=== PATIENT | female | born 1990 | race African-American/Black ===

== ENCOUNTER 2019-06-24 13:11 | Inpatient (IN) | payer OTHER ==
[~2019-06-24] VITALS: Ht 160 cm; Wt 72.6 kg
[2019-06-24 13:13] VITALS: BP 137/74
[2019-06-24 13:27] LABS: URINE BLOOD 3+ (Negative); URINE CLARITY CLEAR; URINE COLOR YELLOW; URINE GLUCOSE-RANDOM* NEGATIVE (Negative); URINE KETONES 3+ (Negative); URINE LEUKOCYTES-REFLEX TRACE (Negative); URINE NITRITE-REFLEX NEGATIVE (Negative); URINE PROTEIN (DIPSTICK) TRACE (Negative)
[2019-06-24 13:31] LABS: ICTOTEST (BILI CONFIRMATORY) Negative (Negative); URINE BILIRUBIN NEGATIVE (Negative)
[2019-06-24 13:32] LABS: URINE REDUCING SUBSTANCE NEGATIVE
[2019-06-24 13:35] LABS: SQUAMOUS 4-10 Moderate /LPF (0-3)
[2019-06-24 13:36] LABS: CASTS None Seen /LPF (None Seen); CRYSTALS None Seen /LPF (None Seen); URINE RBC 3-10 Few /HPF (0-2); URINE WBC-REFLEX 0-5 Rare /HPF (0-5)
[2019-06-24 13:40] LABS: HEMATOCRIT 37.9 % (37.0-47.0); HEMOGLOBIN 12.1 gm/dL (12.0-15.0); MCH 26.3 pg (26.0-34.0); MCV 82.4 fL (80.0-100.0); PLATELET COUNT 289 thou/uL (150-400); RDW 15.9 % (10.5-14.5); WBC 11.7 thou/uL (4.0-11.0)
[2019-06-24 13:49] LABS: CALCIUM 9.4 mg/dL (8.5-10.1); CREATININE 0.9 mg/dL (0.6-1.0); POTASSIUM 3.8 mmol/L (3.5-5.1)
[2019-06-24 13:55] LABS: TOTAL BILIRUBIN 0.9 mg/dL (<0.1-1.0); TOTAL PROTEIN 8.8 g/dL (6.4-8.2)
[2019-06-24 14:08] LABS: ABSOLUTE NEUTROPHILS 8.4 thou/uL (1.4-8.2)
--- NOTE | 2019-06-24 14:37 | EKG ---
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: VENECIA : 1990 Requested By: Marlene Staples Order Number: [id number] MD: Fernie Day Measurements Intervals Williams Rate: 112 P: 66 MN: 148 QRS: 90 QRSD: 80 T: 39 QT: 321 QTc: 438 Interpretive Statements Sinus tachycardia Borderline right axis deviation Borderline T abnormalities, anterior leads No previous ECG available for comparison Electronically Signed On 06-24-2019 14:36:49 CDT by Fernie Day [email or web address] ��������������������������������������������� <ELECTRONICALLY SIGNED> ���������������������������������������� By: Fernie Day MD, [facility] ��������������������������������������������� 06/24/19 1436 1417 1417 Fernie Day MD, FACC /EPI
[2019-06-24 16:34] VITALS: BP 121/66
[2019-06-24] MEDS ORDERED: HYDROXYCHLOROQ200 M1 PO (16:40)
[2019-06-24] MEDS ORDERED: PREDNISONE 5 MG5 M1 PO (16:40)
[2019-06-24] MEDS ORDERED: LIORESAL 10 MG10 MG PO (16:40)
[2019-06-24] MEDS ORDERED: PROTONIX 20 MG20 M1 PO (16:41)
[2019-06-24] MEDS ORDERED: MYFORTIC360 MG PO (16:41)
[2019-06-24] MEDS ORDERED: OXYCODONE HCL 55 MG PO (16:42)
--- NOTE | 2019-06-24 17:06 | NUR ---
ATTEMPTED TO CALL REPORT AT 7344. NURSE REPORTS SHE IS UNAWARE SHE IS GETTING A PT AND WILL CALL BACK
[2019-06-24 17:32] VITALS: BP 108/64
[2019-06-24 17:59] VITALS: BP 128/76
--- NOTE | 2019-06-24 19:00 | NUR ---
PATIENT ARRIVED FROM ED, 1730, ALERT AND ORIENTED X4. DR RAMOS NOTIFIED. TEMPS 101.2 AND MEDICATED. WILL CONTINE WITH POC.
[2019-06-24 19:41] VITALS: BP 134/71
[2019-06-25 04:48] VITALS: BP 109/55
[2019-06-25 08:05] VITALS: BP 116/67
[2019-06-25 11:45] VITALS: BP 106/64
--- NOTE | 2019-06-25 12:51 | 2DMMODE ---
[facility] [address] [place] [address] 2 D/M-MODE ECHOCARDIOGRAM Name: CHRISTOPH GRIFFITHS Room #: 207-P ADM IN M.R.#: [id number] ������������� Admission: 06/24/19 ������������� Attend Phys: Jignesh Salcido Discharge: ��� ������������� ��� Date of : 89 Date of Service: 06/25/19 1251 �� Report #: [id number] �������� ��������������������������������������������[id number] THIS REPORT FOR: //name// APPROVED REPORT Study performed: 06/25/2019 10:47:03 EXAM: Comprehensive 2D, Doppler, and color-flow Echocardiogram Patient Location: Echo lab Room #: 207 Status: routine BSA: 1.76 HR: 85 bpm BP: 116/67 mmHg Rhythm: NSR Indications Chest Pain 2D Dimensions RVDd: 28.48 mm IVSd: 9.75 (7-11mm) LVOT Diam: 21.35 (18-24mm) LVDd: 51.67 mm PWd: 8.84 (7-11mm) Ascending Ao: 20.76 (22-36mm) LVDs: 34.93 (25-40mm) Aortic Root: 24.44 mm IVC: 14.00 mm Volumes Left Atrial Volume (Systole) Single Plane 4CH: 20.85 mL Single Plane 2CH: 19.31 mL LA ESV Index: 13.00 mL/m2 Aortic Valve AoV Peak Ghassan.: 1.40 m/s AO Peak Gr.: 7.87 mmHg AI Vmax: 4.72 m/s AI [place]: 3.75 m/s2 AI PHT: 365.21 ms Mitral Valve E/A Ratio: 2.2 MV Decel. Time: 174.94 ms MV E Max Ghassan.: 1.12 m/s MV A Ghassan.: 0.51 m/s MV PHT: 50.[address] [facility] [place] [address] 2 D/M-MODE ECHOCARDIOGRAM Name: CHRISTOPH GRIFFITHS Room #: 207-P ADM IN M.R.#: [id number] ������������� Admission: 06/24/19 ������������� Attend Phys: Jignesh Salcido Discharge: ��� ������������� ��� Date of : 89 Date of Service: 06/25/19 1251 �� Report #: [id number] �������� ��������������������������������������������[id number] IVRT: 96.89 ms Pulmonary Valve PV Peak Ghassan.: 0.71 m/s PV Peak Gr.: 1.99 mmHg Pulmonary Vein P Vein S: 0.41 m/s P Vein A: 0.28 m/s P Vein D: 0.55 m/s P Vein A Dur.: 114.2 msec P Vein S/D Ratio: 0.75 Tricuspid Valve TR Peak Ghassan.: 2.13 m/s RAP Estimate: 5.00 mmHg TR Peak Gr.: 18.12 mmHg PA Pressure: 23.00 mmHg Left Ventricle The left ventricle is normal size. There is normal left ventricular wall thickness. The left ventricular systolic function is normal. The left ventricular ejection fraction is within the normal range. LVEF is 60-65%. The left ventricular diastolic function is normal. Right Ventricle The right ventricle is normal size. The right ventricular systolic function is normal. Atria The left atrium size is normal. The right atrium size is normal. Aortic Valve The aortic valve is normal in structure. Mild to moderate aortic regurgitation. There is no aortic valvular stenosis. Mitral Valve The mitral valve is normal in structure. Mild mitral regurgitation. No evidence of mitral valve stenosis. Tricuspid Valve The tricuspid valve is normal in structure. Mild to moderate tricuspid regurgitation. PAP is estimated at 23 mmHg. Pulmonic Valve The pulmonary valve is normal in structure. Moderate pulmonic regurgitation. [place] [address] [address] 2 D/M-MODE ECHOCARDIOGRAM Name: KARIN CHRISTOPH ABDI Room #: 207-P [facility] IN [facility]#: [id number] ������������� Admission: 06/24/19 ������������� Attend Phys: Jignesh Salcido Discharge: ��� ������������� ��� Date of : [birth year] Date of Service: 06/25/19 1251 �� Report #: [id number] �������� ��������������������������������������������[id number] The aortic root is normal in size. IVC is normal in size and collapses >50% with inspiration. Pericardium There is no pericardial effusion. <Conclusion> The left ventricle is normal size. There is normal left ventricular wall thickness. The left ventricular systolic function is normal. The left ventricular diastolic function is normal. The right ventricle is normal size. The left atrium size is normal. Mild to moderate aortic regurgitation. Mild mitral regurgitation. Mild to moderate tricuspid regurgitation. PAP is estimated at 23 mmHg. ��������������������������������������������� <ELECTRONICALLY SIGNED> ���������������������������������������� By: Paul Yung MD ��������������������������������������������� 06/25/19 1251 1251 1251 Paul Yung MD /INF
[2019-06-25 16:10] VITALS: BP 144/70
--- NOTE | 2019-06-25 17:54 | NUR ---
ASSUMED CARE AT SHIFT CHANGE, ALERT AND ORIENTED X4. VSS AND AFEBRILE. NSR ON THE MONITOR. C/O PAIN MEDICATED NEEDED. PROGRSEEING TOWARD GOALS AND PATIENT STATED THAT SHE FEELS BETTER. AND WILL CONTINUE WITH POC.
[2019-06-25 21:20] VITALS: BP 117/71
--- NOTE | 2019-06-26 03:08 | NUR ---
ASSESSMENT DOCUMENTED.PT BEEN RESTING IN N ACUTE DISTRESS,MOM AT BEDSIDE.VSS.A/OX4.NO FEVER THIS SHIFT.PAIN MEDS GIVEN ORDERED FOR PAIN TO CHEST AND RUQ ABDOMEN WITH PARTIAL RELIEF.UP AD LIZ TO BR.PT C/O NAUSEA THAT WAS CONTROLLED WITH ZOFRAN.DENIES ANY OTHER CONCERNS AT THIS TIME.WILL CONT TO MONITOR PER POC.
[2019-06-26 04:00] VITALS: BP 97/62
[2019-06-26 07:40] VITALS: BP 120/67
[2019-06-26 11:35] VITALS: BP 119/71
--- NOTE | 2019-06-26 12:47 | NUR ---
met with patient and mother at bedside. Patient admits with lupus flare. She lives with her . She is not employed at this time. 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 Patient has PCP with [facility] who recently left practice. Patient wants new PCP and interested in [facility] phys and Dr Chowdhury. Dr Chowdhury office reports takes [employer] insurance it depends on plan if covered. Patient plans to f/u with phys office. She has safety net clinic information.
--- NOTE | 2019-06-26 13:29 | NUR ---
ASSUMED CARE AT SHIFT CHNAGE ALERT AND ORIENTED X4. VSS AND AFEBRILE. SR ON THE MONITOR. MEDICATED FOR NONE CARDIAC CHEST PAIN AND ABD PAIN INDICATED. AND MEDICATED FOR NAUSEA NEEDED. PROGRESSING TOWARDS GOAL AND WILL CONTINUE WITH POC.
[2019-06-26 15:55] VITALS: BP 163/47
[2019-06-26 17:07] LABS: COMPLEMENT-C3 168 mg/dL (82-167); COMPLEMENT-C4 23 mg/dL (14-44)
[2019-06-26 19:25] VITALS: BP 116/65
--- NOTE | 2019-06-27 01:39 | NUR ---
ASESSMENT COMPLETED. PT IS UP AD LIZ IN ROOM.C/O NON CARDIAC CHESTPAIN. GIVEN OXYCODONE. PT REPORTS BARELY ANY RELIEF. SHE REQUESTED FOR MORPHINE IVP AROUND MIDNOC. PT AWARE THAT WITH THE GOAL FOR DISCHARGE, IV PAIN MEDS NEEDS TO BE AVOIDED. AFEBRILE. ZOFRAN GIVEN ONE TIME FOR C/O NAUSEA.NO FURTHER CONCERNS AT THIS TIME. WILL CONTINUE WITH POC TILL EOS.
[2019-06-27 03:50] VITALS: BP 111/73
--- NOTE | 2019-06-27 06:32 | NUR ---
PT APPEARS TO HAVE SLEPT WELL THROUGH THE NOC. GIVEN PAIN MEDS PRN FOR C/O NON CARDIAC CHEST PAIN. PT IS SATTING OKAY ON ROOM AIR. SHE IS UP AD LIZ IN ROOM.LOOKING FORWARD TO D/C HOME?
--- NOTE | 2019-06-27 07:49 | HC ---
[facility] [place] [place] [address] CONSULTATION Name: CHRISTOPH GRIFFITHS Room #: 427-P ADM IN M.R.#: [id number] Admission: 06/24/19 ������������������ Attend Phys: Jignesh Salcido MD Discharge: ������������������ Date of : [birth year] Report #: [id number] THIS REPORT FOR: //name// CC: MOHINI physician/PCP Jignesh Salcido REASON FOR THE CONSULTATION: Hematuria. HISTORY OF PRESENT ILLNESS: A 29-year-old with history of lupus for the last 4 years, has been treated by numerous immunosuppressive medications including Myfortic, methotrexate, Imuran. She never required a kidney biopsy. She was never told that she had involvement of her kidney. She was diagnosed with lupus 4 years ago. She tells me that she had symptoms of pericarditis and pleuritis. She is followed by [facility]. She is currently maintained on prednisone and Myfortic. She is also on Plaquenil. She presented with shortness of breath, headache, visual symptoms. She tells me that when she wipes, she thinks that her cycle is on. Creatinine has been in the normal range. She did have some ketone and blood in the urine with red blood cells reported in the microscopy. She has no proteinuria. PAST MEDICAL HISTORY: 1. SLE diagnosed 4 years ago. 2. Numerous immunosuppressive medications usage in the past. 3. Pleuritis. 4. Pericarditis. 5. Iritis. MEDICATIONS: 1. Prednisone. 2. Myfortic. 3. Hydroxychloroquine. ALLERGIES: HYDROCODONE and IBUPROFEN. SOCIAL HISTORY: She denies drug or alcohol abuse. REVIEW OF SYSTEMS: GENERAL: Significant for malaise. CARDIOVASCULAR: Significant for occasional chest pain and shortness of breath. PULMONARY: No cough or hemoptysis. GASTROINTESTINAL: No nausea or vomiting. GENITOURINARY: No frequency, no urgency. She does have her cycle on. MUSCULOSKELETAL: As per the history of present illness. PHYSICAL EXAMINATION: VITAL SIGNS: Blood pressure is 109/55, temperature 37.8. HEAD AND NECK: No jugular venous distention. [facility] [address] [place] [address] CONSULTATION Name: CHRISTOPH GRIFFITHS Room #: 427-P [facility] IN ..#: [id number] Admission: 06/24/19 ������������������ Attend Phys: Jignesh Salcido MD Discharge: ������������������ Date of : [birth year] Report #: [id number] CHEST: No crackles. CARDIOVASCULAR: No rub detected. ABDOMEN: Soft, nontender with no hepatosplenomegaly. LOWER EXTREMITIES: No edema. LABORATORY VALUES: Reviewed. White blood cell count 11.7. Sodium 138, potassium 3.8, BUN is 8, creatinine 0.9. C-reactive protein is 203. UA with +3 ketone, blood and trace protein. Some red blood cells. IMPRESSION AND PLAN: 1. Lupus flareup. 2. Hematuria while the patient is having a cycle 3. Remote history of pericarditis and iritis. 4. Continue with the same immunosuppressive medications for now including her Myfortic and hydroxychloroquine. Pulse dose steroids have been initiated by the primary team. Her hematuria could be related to her cycle and I would like to obtain her previous medical records from [facility] as she does not have any evidence of renal involvement. Might titrate the dose of her mycophenolate to a full dose. It does not look like that she has any signs of involvement of her kidneys, but her serological markers are highly suggestive of lupus flare up with very high C-reactive protein. Her ESR is also on the high side and she will need augmentation of her immunosuppressive medications. ��������������������������������������������� <ELECTRONICALLY SIGNED> ���������������������������������������� By: Abhi Tinajero MD ��������������������������������������������� 06/27/19 0749 0747 0902 Abhi Tinajero MD /nt
[2019-06-27 08:02] VITALS: BP 121/76
[2019-06-27 14:07] LABS: ANTI-DNA SCREEN 78 IU/mL (0-9)
[2019-06-27 18:13] VITALS: BP 110/60
--- NOTE | 2019-06-27 18:47 | NUR ---
Assumed patient care at 0715. Patient is up at [facility] with stand-by assist. Patient has complained of chest pain which is non-cardiac related. Pain is related to Lupus Exacerbation. She has been given Oxycodone 5mg po as well as Norphine 4mg/mL IV push; both medications have been effective with reducing her pain. She has a new order for Miralax 17gm po daily prn for constipation. Vital signs have been stable. Will report to oncoming RN.
[2019-06-27 19:36] VITALS: BP 111/63
--- NOTE | 2019-06-27 23:42 | NUR ---
ASSESSMENT COMPLETED. PT OBSERVED WITH SOME VISITORS IN ROOM. PT TALKING. PT IS UP AD LIZ. STILL C/O NON CARDIAC CHEST PAIN. GIVEN PRN PAIN MEDS AND CLONAZEPAM. WILL CONTINUE WITH POC.
[2019-06-28 05:02] VITALS: BP 116/42
[2019-06-28 07:44] VITALS: BP 112/53
--- NOTE | 2019-06-28 10:20 | NUR ---
PT RESTING IN BED TOOK AM MEDS. PT STATES NO PAIN BUT WANTS TO SLEEP.
[2019-06-28] MEDS ORDERED: MYFORTIC360 MG PO (12:26)
[2019-06-28] MEDS ORDERED: OXYCODONE HCL 55 MG PO (12:41)
[2019-06-28] MEDS ORDERED: PREDNISONE 10 M10 MG PO (12:42)
[2019-06-28 12:56] VITALS: BP 112/53
[2019-06-28 13:03] VITALS: BP 112/53
[2019-06-28 13:09] VITALS: BP 112/53
--- NOTE | 2019-06-28 13:19 | NUR ---
DISCHARGE PAPERS GONE OVER SIGNED AND COPY IN CHART. IV ACSESS DCD. ALL BELONGINGS PACKED AND WILL BE SENT WITH PATIENT
[2019-06-28 14:12] VITALS: BP 112/53
== END 2019-06-28 13:57 | disposition home or self-care (01) | DRG 546 ==
LOC: ER 13:11 → 4E 15:47 → EROBS 15:47 → 2N 17:15 → 4E 06-26 18:39
PROVIDERS: Internal Medicine Rheumatology; Physician Assistant; ADMIT Internal Medicine
DX: M32.9 Systemic lupus erythematosus, unspecified (principal); I31.3 Pericardial effusion (noninflammatory); H20.9 Unspecified iridocyclitis; R00.0 Tachycardia, unspecified; R31.9 Hematuria, unspecified; M19.90 Unspecified osteoarthritis, unspecified site; K59.00 Constipation, unspecified; Z88.6 Allergy status to analgesic agent; Z88.8 Allergy status to other drugs, medicaments and biological substances; Z79.899 Other long term (current) drug therapy
CPT/HCPCS: 10081; 10783

== ENCOUNTER 2019-09-12 10:16 | Inpatient (IN) | payer OTHER ==
[~2019-09-12] VITALS: Ht 160 cm; Wt 78.0 kg
[~2019-09-12 10:16] MED LIST: HYDROXYCHLOROQ200 M1 PO; LIORESAL 10 MG10 MG PO; MYFORTIC360 MG PO; OXYCODONE HCL 55 MG PO; PREDNISONE 10 M10 MG PO; PREDNISONE 5 MG5 M1 PO; PROTONIX 20 MG20 M1 PO
[2019-09-12 10:28] VITALS: BP 110/75
[2019-09-12] MEDS ORDERED: BENLYSTA120 MG (10:36)
[2019-09-12] MEDS ORDERED: RAYOS5 MG PO (10:37)
[2019-09-12] MEDS ORDERED: FUROSEMIDE 20 M20 MG PO (10:37)
[2019-09-12 11:08] LABS: URINE BILIRUBIN NEGATIVE (Negative); URINE BLOOD NEGATIVE (Negative); URINE CLARITY SL CLOUDY; URINE COLOR YELLOW; URINE GLUCOSE-RANDOM* NEGATIVE (Negative); URINE KETONES NEGATIVE (Negative); URINE LEUKOCYTES-REFLEX TRACE (Negative); URINE PROTEIN (DIPSTICK) NEGATIVE (Negative); URINE UROBILINOGEN 0.2 E.U./dl (0.2-1.0)
[2019-09-12 11:10] LABS: URINE NITRITE-REFLEX POSITIVE (Negative)
[2019-09-12 11:21] LABS: ABSOLUTE NEUTROPHILS 6.1 thou/uL (1.4-8.2); BASOPHILS 0.2 % (0.0-2.0); HEMATOCRIT 48.7 % (37.0-47.0); HEMOGLOBIN 15.6 gm/dL (12.0-15.0); LYMPHOCYTES 5.3 % (24.0-44.0); MCH 27.7 pg (26.0-34.0); MCHC 32.1 g/dL (28.0-37.0); MCV 86.3 fL (80.0-100.0); MONOCYTES 6.7 % (1.0-8.0); PLATELET COUNT 260 thou/uL (150-400); POLYS 87.8 % (36.0-66.0); RBC 5.64 mil/uL (4.20-5.00); RDW 15.4 % (10.5-14.5); WBC 6.9 thou/uL (4.0-11.0)
[2019-09-12 11:29] LABS: SQUAMOUS >10 Many /LPF (0-3)
[2019-09-12 11:31] LABS: BACTERIA-REFLEX >30 Many /HPF (None Seen); CASTS None Seen /LPF (None Seen); CRYSTALS None Seen /LPF (None Seen); URINE RBC None Seen /HPF (0-2); URINE WBC-REFLEX 6-15 Few /HPF (0-5)
[2019-09-12 11:35] LABS: CALCIUM 9.6 mg/dL (8.5-10.1); CREATININE 1.2 mg/dL (0.6-1.0); POTASSIUM 3.9 mmol/L (3.5-5.1)
[2019-09-12 11:37] LABS: ALBUMIN 4.4 g/dL (3.4-5.0); DIRECT BILIRUBIN 0.3 mg/dL (<0.1-0.3); TOTAL BILIRUBIN 1.4 mg/dL (<0.1-1.0); TOTAL PROTEIN 9.4 g/dL (6.4-8.2)
[2019-09-12 16:16] LABS: CSF GLUCOSE 56 mg/dL (40-70)
[2019-09-12 16:58] LABS: CSF CLARITY CLEAR; CSF COLOR COLORLESS; CSF RBC 0 /mm3; CSF WBC 1 /mm3 (0-10); VOLUME 10 ml
[2019-09-12 18:27] VITALS: BP 105/57
[2019-09-12 19:01] VITALS: BP 93/43
[2019-09-12 19:21] VITALS: BP 116/65
--- NOTE | 2019-09-12 20:50 | NUR ---
ADMISSION ASSESSMENT COMPLETED. PT STILL HAS NAUSEA, VOMITING AND DIARHOEA. SHE TOOK A BITE OF SOME FOOD AND SHE HAS BEEN TO THE BATHROOM 3 TIMES SO FAR WITH DIARHOEA.TYLENOL GIVEN FOR HEAD, BACK AND BODY ACHES. ZOFRAN GIVEN FOR SOME MILD RELIEF. IVF STARTED. WILL CONTINUE WITH POC TILL EOS.
[2019-09-13 04:03] VITALS: BP 119/42
[2019-09-13 08:20] VITALS: BP 166/85
[2019-09-13 12:12] VITALS: BP 116/61
[2019-09-13 15:38] VITALS: BP 103/64
--- NOTE | 2019-09-13 16:27 | NUR ---
PT ADMITTED RELATED TO HEADACHE, TACHYCARDIA, FEVER. CM REVIEWED CHART AND SPOKE WITH CARE TEAM. CM MET WITH PT AT BEDSIDE THIS DAY. PT INDICAATED SHE LIVES IN A HOUSE WITH HER SPOUSE AND CHILD. 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 PT INDICATED NO DME OR HH HX. PT INDICATED SHE PLANS TO RETURN HOME ONCE MEDICALLY STABLE. CM TO FOLLOW INDICATED WITH DC PLANNING.
[2019-09-13 20:55] VITALS: BP 105/64
--- NOTE | 2019-09-13 21:19 | NUR ---
ASSUMED CARE OF PT AT APPROX 0700. PT IS ALERT ANDORIENTED X4, NAUSEA TREATED PRN, FEVER TREATED WITH PRN TYLENOL. PAIN UNCONTROLLED. PAGED SEVERAL TIME TRYING TO WORK OUT NEW PAIN MEDS BUT UN WILLING TO GIVE PAIN MEDS TO PT. FINALLY AFTER EXPOLAINING TO DOC PT CRYING AND IN PAIN ORDERED NEW PAIN MED THAT WAS THEN GIVEN WITH MINIMAL RELIEF BUT PT NOW UP AROUND LAUGHING AND EATING. ASSESSMENT CHARTED. PT UPSET WITH CARE. DENIES SOA. EVEN NONLABORED BREATHING. PT REPORTS BUTTERFLY RASH. THIS NURSE UNSURE VISIBILTY OF RASH IS MINIMAL. PT UPDATED ON POC.
[2019-09-14 04:07] VITALS: BP 104/47
--- NOTE | 2019-09-14 04:52 | NUR ---
PT AOX4. PT REPORTS PAIN IN BACK AND HEAD 6/10. PT RECEIVING PO PRN OXYCODONE IR Q4HR. PT REPORTS DISRUPTED SLEEP DUE TO PAIN AND N/V. PT REPORTS FEELING LIKE SHE IS HAVING A LUPUS FLARE. PT REPORTS SPECIALTY DOCTOR VP MARKETING AT [facility], DR. ALYSIA LOVE AND HAS A FOLLOW UP APPOINTMENT NEXT WEEK. PT REFUSING ACHS GLUCOSE MONITORING. PT PLACED ON SPECIAL CONTACT ISOLATION FOR POSSIBLE C.DIFF. PT AMBULATES WITH STBA TO BATHROOM AND IN ROOM. PT TOLERATING PO FLUIDS AND MEDICATIONS WITHOUT ISSUE. ENCOURAGED TO NOTIFY STAFF FOR ALL NEEDS. BED IN LOWEST POSITION, CALL LIGHT WITHIN REACH, BED ALARM ON. WILL CONTINUE TO MONITOR.
[2019-09-14 05:24] LABS: CALCIUM 8.7 mg/dL (8.5-10.1); CREATININE 0.8 mg/dL (0.6-1.0); POTASSIUM 3.8 mmol/L (3.5-5.1)
[2019-09-14 08:15] VITALS: BP 91/52
--- NOTE | 2019-09-14 15:32 | NUR ---
ASSUMED CARE OF PT AT 0700. PT WAS UPSET AND REQUESTED DOCTOR AND NURSE AUTOMATION ANALYST. PTS PAIN LEVELS ARE BEING CONTROLLED BY PAIN MEDICATION, SEE EMAR. PT C/O VOMITING, VOMITING ID BEING CONTROLLED BY MEDICATION, SEE EMAR. PT IS NOT A FALL RISK. C DIFF IS ON C DIFF PRECAUTIONS. CALL LIGHT IS WITHIN REACH, BED IS IN THE LOWEST POSITION. WILL CONTINUE TO MONITOR THE PT.
[2019-09-14 16:00] VITALS: BP 110/75
[2019-09-14 17:08] VITALS: BP 99/53
--- NOTE | 2019-09-14 19:09 | HC ---
[facility] [place] [address] [place] [address] CONSULTATION Name: CHRISTOPH GRIFFITHS Room #: 433-I ADM IN M.R.#: [id number] Admission: 09/12/19 Attend Phys: Royce Hancock Discharge: Date of : 89 Report #: [id number] THIS REPORT FOR: //name// CC: MOHINI physician/PCP Royce JUNE PCP DATE OF SERVICE: 09/13/2019 INFECTIOUS DISEASE CONSULTATION REASON FOR CONSULTATION: I was asked to evaluate concerning gastroenteritis, sepsis and immunosuppression. HISTORY OF PRESENT ILLNESS: A 29-year-old with lupus erythematosus, on immunosuppression, including a newly started biologic agent now month #2 associated with 15 mg of prednisone a day and Plaquenil. Two days ago, had the acute onset of fever, chills, nausea, vomiting and diarrhea. Her son and have the same symptom complex and are still sick at home. She had exposure to an extended family member 24 hours prior to this. The patient has had no travel. No prior history of gastrointestinal disease. No travel outside the [place]. She has not been out to eat nor does she recall having any tainted food. She has been stable on her immunosuppression over the last 4 years. She has been unable to get off corticosteroids. Has no history of tuberculosis, HIV or fungal infections. Following admission, she was placed on Levaquin and had one dose of metronidazole. She is receiving IV fluids. Continues to have liquid stools. Nausea is better controlled with Zofran. REVIEW OF SYSTEMS: Denies any cardiopulmonary, symptoms. Does feel like she is starting to get a lupus flare with increased muscle and joint pain along with facial rash. In the past, she has had issues with serositis and musculoskeletal pain. Further 10-point review of system was negative other than what has been described above. ALLERGIES: HYDROCODONE, IBUPROFEN, COMPAZINE, TRAMADOL, NAPROSYN. MEDICATIONS: Pantoprazole, Benlysta, 15 mg of prednisone a day, Lasix, baclofen, hydroxychloroquine, now Levaquin. PAST MEDICAL HISTORY: Systemic lupus erythematosus, fatty liver disease. FAMILY HISTORY: Noncontributory. [facility] [address] [place] [address] CONSULTATION Name: CHRISTOPH GRIFFITHS Room #: 433-I [facility] IN [facility].#: [id number] Admission: 09/12/19 Attend Phys: Royce Hancock Discharge: Date of : 89 Report #: [id number] SOCIAL HISTORY: Smokes marijuana. No significant alcohol intake. PHYSICAL EXAMINATION: VITAL SIGNS: Currently afebrile and hemodynamically stable. GENERAL: She was cushingoid. SKIN: Without rash. EYES: Without scleral icterus. MOUTH: Without mucositis. NECK: Supple. No palpable adenopathy. LUNGS: Clear. HEART: Regular. ABDOMEN: Soft, nontender with no hepatosplenomegaly or mass. GENITORECTAL: Not performed. EXTREMITIES: Without clubbing, cyanosis or edema. NEUROLOGIC: Cranial nerves were intact. Strength in the upper and lower extremities was normal. Sensation to touch upper and lower extremities normal. LABORATORY STUDIES: Chest x-ray was clear. CT scan of the head negative. Creatinine 1.2. Liver function test normal. Hemoglobin 15.6, white count 6.9, platelet count 260,000. Spinal tap 0 RBCs, 1 WBC, glucose 56, protein 27. Influenza antigen negative. Urinalysis 6-15 wbc's, many bacteria. IMPRESSION: A 29-year-old with systemic lupus erythematosus immunosuppressed presents now with gastroenteritis and febrile syndrome. I am suspecting viral gastroenteritis, considering both her son and her have the same symptom complex. In an immunocompromised patient, this would undoubtedly potentially be more serious presentation. The patient presented with dehydration. Still with tachycardia. Yet cannot rule out bacterial enteritis. RECOMMENDATIONS: We will continue IV fluids, Levaquin and obtain further microbiology studies of the stool while awaiting blood cultures. Although her urinalysis had bacteriuria does not appear to have urinary tract infection at this point. The patient will remain hospitalized until stabilized. I will restart her prednisone for stress dose. <ELECTRONICALLY SIGNED> By: Jorge Cedillo MD 09/14/19 [id number] 0051 Jorge Cedillo MD /nt
[2019-09-14 20:21] VITALS: BP 107/59
--- NOTE | 2019-09-15 07:51 | NUR ---
PATIENT ALERT AND ORIENTED X4. C/O PAIN, V/N DURING NIGHT. PAIN MED AND ZOFRAN GIVEN WITH LITTLE HELP. [place] DECORATOR WAS CALLED AND AN ORDER WAS OBTAINED FOR IV PAIN MED. GIVEN, ORDER OBTAINED FOR IV REGLAN, NOT GIVEN BECAUSE PT AFRAID OF HAVING AN ALLERGIC REACTION. PT REFUSED TO HAVE HER BLOOD SUGAR TAKEN, THEREFORE NO INSULIN GIVEN. SHE ALSO REFUSED HER LOVENOX INJECTION. MOM AT BEDSIDE, SLEPT OFF AND ON DURING NIGHT.
[2019-09-15 09:28] VITALS: BP 108/60
[2019-09-15] MEDS ORDERED: CEFUROXIME500 MG PO (09:36)
[2019-09-15] MEDS ORDERED: PERCOCET 5-3251 EACH PO (09:43)
[2019-09-15] MEDS ORDERED: ZOFRAN ODT4 MG DISSOLVE (09:43)
[2019-09-15 11:08] VITALS: BP 108/60
--- NOTE | 2019-09-15 13:52 | NUR ---
ASSUMED CARE OF THE PT AT 0700. PT IS ON CONTACT PRECAUTIONS FOR C DIFF, LAB RESULTS SHOW NEG RESULTS AND POSITIVE FOR UTI. PT C/O N/V AND DIARRHEA WITH SORENESS IN THE ABDOMEN. PT HAD SMALL RASH ON L & R SIDE OF TONGUE AND UNDER L EYE ON CHEEK, SPOKE WITH DOCTOR. PT IS BEING DISCHARGED TO HOME WITH MEDS, SEE DISCHARGE INSTRUCTIONS. PAIN WAS CONTROLLED BY PAIN MEDICATION, SEE EMAR. PTS ANTIBIOTIC WAS CALLED INTO THE PHARMACY, . LUNG SOUNDS ARE CLEAR AND HR IS TACHY. ABDOMINAL SOUNDS ARE HYPOACTIVE. PT SIGNED DISCHARGE PAPERWORK AND IV WAS REMOVED. PT DISCHARGED.
[2019-09-19 08:07] LABS: ADENOVIRUS Negative (Negative); INFLUENZA A Negative (Negative); INFLUENZA B Negative (Negative); METAPNEUMOVIRUS Negative (Negative); PARAINFLUENZA 1 Negative (Negative); PARAINFLUENZA 2 Negative (Negative); PARAINFLUENZA 3 Negative (Negative); RHINOVIRUS Negative (Negative); RSV A Negative (Negative); RSV B Negative (Negative)
== END 2019-09-15 12:00 | disposition home or self-care (01) | DRG 690 ==
LOC: ER 10:16 → 4S 16:33 → EROBS 16:33 → 4S 18:36
PROVIDERS: Emergency Medicine; Specialist; ADMIT Hospitalist
PROC: 009U3ZX Drainage of Spinal Canal, Percutaneous Approach, Diagnostic (ICD-10-PCS; principal; 2019-09-12)
DX: N39.0 Urinary tract infection, site not specified (principal); A08.4 Viral intestinal infection, unspecified; K76.0 Fatty (change of) liver, not elsewhere classified; F12.90 Cannabis use, unspecified, uncomplicated; R51 Headache; R00.0 Tachycardia, unspecified; M32.9 Systemic lupus erythematosus, unspecified; E86.0 Dehydration; B96.1 Klebsiella pneumoniae [K. pneumoniae] as the cause of diseases classified elsewhere; J32.9 Chronic sinusitis, unspecified; Z79.891 Long term (current) use of opiate analgesic; Z88.5 Allergy status to narcotic agent; Z88.8 Allergy status to other drugs, medicaments and biological substances; Z79.899 Other long term (current) drug therapy
CPT/HCPCS: 10195

== ENCOUNTER 2019-11-29 18:46 | Inpatient (IN) | payer OTHER ==
[~2019-11-29] VITALS: Ht 160 cm; Wt 86.1 kg
[~2019-11-29 18:46] MED LIST changes: +BENLYSTA120 MG; +CEFUROXIME500 MG PO; +FUROSEMIDE 20 M20 MG PO; +PERCOCET 5-3251 EACH PO; +RAYOS5 MG PO; +ZOFRAN ODT4 MG DISSOLVE
[2019-11-29 18:58] VITALS: BP 139/78
[2019-11-29 19:45] LABS: URINE BILIRUBIN NEGATIVE (Negative); URINE BLOOD 2+ (Negative); URINE CLARITY CLEAR; URINE COLOR YELLOW; URINE GLUCOSE-RANDOM* NEGATIVE (Negative); URINE KETONES NEGATIVE (Negative); URINE LEUKOCYTES-REFLEX TRACE (Negative); URINE NITRITE-REFLEX POSITIVE (Negative); URINE PROTEIN (DIPSTICK) NEGATIVE (Negative); URINE SPECIFIC GRAVITY >= 1.030 (1.005-1.035); URINE UROBILINOGEN 0.2 E.U./dl (0.2-1.0)
[2019-11-29 20:02] LABS: BACTERIA-REFLEX >30 Many /HPF (None Seen); CASTS None Seen /LPF (None Seen); CRYSTALS None Seen /LPF (None Seen); SQUAMOUS 0-3 Few /LPF (0-3); URINE WBC-REFLEX 0-5 Rare /HPF (0-5)
[2019-11-29 20:03] LABS: URINE RBC 0-2 Rare /HPF (0-2)
[2019-11-29 20:19] LABS: ABSOLUTE NEUTROPHILS 9.8 thou/uL (1.4-8.2); EOSINOPHILS 0.2 % (0.0-3.0); HEMATOCRIT 42.1 % (37.0-47.0); HEMOGLOBIN 13.4 gm/dL (12.0-15.0); LYMPHOCYTES 19.6 % (24.0-44.0); MCH 27.4 pg (26.0-34.0); MCHC 31.7 g/dL (28.0-37.0); MCV 86.5 fL (80.0-100.0); MONOCYTES 9.9 % (1.0-8.0); PLATELET COUNT 332 thou/uL (150-400); POLYS 69.3 % (36.0-66.0); RBC 4.87 mil/uL (4.20-5.00); WBC 14.2 thou/uL (4.0-11.0)
[2019-11-29 20:28] LABS: CALCIUM 8.4 mg/dL (8.5-10.1); CREATININE 0.8 mg/dL (0.6-1.0); POTASSIUM 3.5 mmol/L (3.5-5.1)
[2019-11-29 20:34] LABS: ALBUMIN 3.6 g/dL (3.4-5.0); TOTAL BILIRUBIN 0.4 mg/dL (<0.1-1.0); TOTAL PROTEIN 8.4 g/dL (6.4-8.2)
[2019-11-29] MEDS ORDERED: FLAGYL500 M1 PO (22:39)
[2019-11-29] MEDS ORDERED: FLEXERIL PO (23:44)
[2019-11-29] MEDS ORDERED: TIZANIDINE HCL 22 M1 PO (23:45)
[2019-11-29 23:50] VITALS: BP 112/64
[2019-11-30] VITALS (7 sets, daily range): BP systolic 111–128; BP diastolic 52–78
[2019-11-30 03:56] LABS: ABSOLUTE NEUTROPHILS 12.4 thou/uL (1.4-8.2); BASOPHILS 0.3 % (0.0-2.0); HEMATOCRIT 41.4 % (37.0-47.0); LYMPHOCYTES 7.2 % (24.0-44.0); MCH 27.6 pg (26.0-34.0); MCHC 31.5 g/dL (28.0-37.0); MCV 87.8 fL (80.0-100.0); MONOCYTES 0.8 % (1.0-8.0); PLATELET COUNT 343 thou/uL (150-400); POLYS 91.7 % (36.0-66.0); RBC 4.71 mil/uL (4.20-5.00); RDW 14.4 % (10.5-14.5); WBC 13.5 thou/uL (4.0-11.0)
[2019-11-30 04:11] LABS: CALCIUM 8.5 mg/dL (8.5-10.1); CREATININE 0.9 mg/dL (0.6-1.0); MAGNESIUM 1.9 mg/dL (1.8-2.4)
[2019-11-30 04:28] LABS: POTASSIUM 4.5 mmol/L (3.5-5.1)
--- NOTE | 2019-11-30 06:04 | NUR ---
PATIENT ADMITTED ON UNIT AROUND 2350. PT IS AMBULATORY AND C/O PAIN THAT IS NON CARDIAC RELATED AND DUE TO LUPUS. PT ADMISSION COMPLETED AND ALL CONSENTS SIGNED. PT PAIN MEDICATION AND ANTIBIOTICS ADMINISTERED PER EMAR. PT WAS UNABLE TO REST AND GIVEN PRN MEDICATION UPON REQUEST. WILL CONTINUE TO MONITOR PT PER PLAN CARE.
--- NOTE | 2019-11-30 08:00 | EKG ---
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
--- NOTE | 2019-11-30 17:52 | NUR ---
PT CARE ASSUMED APPROX 0700. ASSESSMENTS CHARTED. PT DENIES SOA. REPORTS ADEQUATE PAIN MANAGEMENT OF CHEST PAIN. PT TOLERATING POC. DENIES QUESTIONS OR CONCERNS REGARDING POC. UP WITH STEADY GAIT. PT'S COMPLAINT BESIDES PAIN IS LACK OF SLEEP. ORDERS TO BE PUT IN PER DR ORTIZ FOR BETTER REST TONIGHT. PT'S MOM WAS AT BEDSIDE FOR A PORTION OF THE DAY. SHE DENIED QUESTIONS REGARDING POC. NO DISTRESS NOTED.
[2019-12-01 04:01] VITALS: BP 117/42
--- NOTE | 2019-12-01 05:22 | NUR ---
ASSUMED PT CARE AROUND 191. PT WAS IN BED WITH MOTHER AT BEDSIDE WATCHING TELEVISION. PT C/O PAIN IN CHEST THAT IS NON-CARDIAC RELATED. PAIN MEDICATION ADMINISTERED PER EMAR. PT RECIEVED PARTIAL PAIN RELIEF. WILL CONTINUE TO MONITOR PER PLAN OF CARE.
[2019-12-01 08:30] VITALS: BP 115/61
--- NOTE | 2019-12-01 16:33 | NUR ---
PT CARE ASUMED APPROXIMATELY 0700. PT ASSESSMENTS CHARTED. PT MEDICATION CHARTED. MORPHINE GIVEN Q2 HOURS FOR PAIN. PT COMPLAINS OF CONTINUED DIFFICULTY SLEEPING. PT IN A GOOD MOOD. VITAL SIGNS STABLE.
[2019-12-01 17:00] VITALS: BP 122/68
[2019-12-01 20:31] VITALS: BP 114/58
[2019-12-02 04:50] VITALS: BP 104/59
[2019-12-02 07:45] VITALS: BP 107/72
--- NOTE | 2019-12-02 08:21 | NUR ---
ASSUMED CARE OF PATIENT AT 1900. ASSESSMENTS COMPLETED. TELE STRIPS PRINTED AND PLACED IN THE CHART. PATIENT TAKING SCHEDULED MORPHINE Q 2 HOURS WITH PAIN GREATER THAN 6/10. PATIENT RESTING COMFORTABLY IN BED WITH HER MOM AT THE BEDSIDE. PATIENT WAS FINALLY ABLE TO GET ADEQUATE SLEEP OVERNIGHT. PATIENT TO CONTINUE WITH POC.
[2019-12-02 09:22] VITALS: BP 107/72
[2019-12-02 16:16] VITALS: BP 121/79
--- NOTE | 2019-12-02 18:01 | NUR ---
PT CARE ASSUMED APPROXIMATELY 0700. PT ASSESSMENT CHARTED. PT MEDICATIONS CHARTED. PT STATES SHE HAD BUTTERFLY SIGN PALLET ASSEMBLER BUT IT WAS UNWITNESSED, DR AWARE. PAIN RELIEF ALTERED BY DR HE FROM Q2 TO Q4PRN. NO CONCERNS VOICED.
[2019-12-02 19:52] VITALS: BP 114/64
[2019-12-03 03:55] VITALS: BP 104/59
[2019-12-03 05:32] LABS: HEMATOCRIT 38.8 % (37.0-47.0); HEMOGLOBIN 12.1 gm/dL (12.0-15.0); MCH 27.3 pg (26.0-34.0); MCHC 31.2 g/dL (28.0-37.0); MCV 87.6 fL (80.0-100.0); RBC 4.43 mil/uL (4.20-5.00); RDW 14.5 % (10.5-14.5); WBC 25.4 thou/uL (4.0-11.0)
--- NOTE | 2019-12-03 05:37 | NUR ---
PATIENT A/O X 4.ABLE TO VOICE STRUGGLE OF HAVING LUPUS.PAIN FAIRLY CONTROLLED.UP INDEPENDENTLY TO THE BATHROOM.VOIDS.MIRALAX GIVEN BUT NO BM YET THIS SHIFT.MONITOR SHOWS SR,SA.POC CONTINUED.
[2019-12-03 05:41] LABS: CALCIUM 8.9 mg/dL (8.5-10.1); CREATININE 0.9 mg/dL (0.6-1.0); POTASSIUM 3.9 mmol/L (3.5-5.1)
[2019-12-03 07:00] VITALS: BP 115/56
[2019-12-03 11:13] VITALS: BP 115/56
[2019-12-03] MEDS ORDERED: PERCOCET 5-3251 EACH PO (12:32)
[2019-12-03] MEDS ORDERED: BACTRIM DS TAB1 EAC1 PO (12:33)
[2019-12-03 12:57] VITALS: BP 115/56
[2019-12-03] MEDS ORDERED: DIFLUCAN150 M1 PO (12:57)
[2019-12-03] MEDS ORDERED: ACIDOPHILUS1 EAC4 PO (12:57)
[2019-12-03 13:39] VITALS: BP 115/56
--- NOTE | 2019-12-03 15:30 | NUR ---
ASSUMED CARE OF PT AT SHIFT CHANGE. ASSESSMENT CHARTED. MEDS GIVEN PER DEC. PT A&OX4. C/O PAIN TREATED WITH PO MEDS WITH PARTIAL RELIEF. DISCHARGE ORDERS AND INSTRUCTIONS COMPLETE. TELE AND IV DC'D. PT LEFT IN WC WITH VOLUNTEER AND FRIEND TO PRIVATE CAR.
== END 2019-12-03 14:44 | disposition home or self-care (01) | DRG 546 ==
LOC: ER 18:46 → 2N 22:04 → EROBS 22:04 → 2N 23:37 → ENTRNSPT 12-03 13:28 → EDTRNSPTSTS 12-03 13:33 → 2N 12-03 14:44
PROVIDERS: Nurse Practitioner; Physician Assistant; ADMIT Hospitalist
DX: M32.9 Systemic lupus erythematosus, unspecified (principal); N39.0 Urinary tract infection, site not specified; N76.0 Acute vaginitis; Z79.899 Other long term (current) drug therapy; Z88.8 Allergy status to other drugs, medicaments and biological substances
CPT/HCPCS: 10081

== ENCOUNTER 2020-04-30 15:25 | Emergency (ER) | payer OTHER ==
[~2020-04-30] VITALS: Ht 160 cm; Wt 78.5 kg
[~2020-04-30 15:25] MED LIST changes: +ACIDOPHILUS1 EAC4 PO; +BACTRIM DS TAB1 EAC1 PO; +DIFLUCAN150 M1 PO; +FLAGYL500 M1 PO; +FLEXERIL PO; +TIZANIDINE HCL 22 M1 PO
[2020-04-30 16:17] LABS: URINE BILIRUBIN NEGATIVE (Negative); URINE BLOOD 3+ (Negative); URINE COLOR YELLOW; URINE GLUCOSE-RANDOM* NEGATIVE (Negative); URINE KETONES NEGATIVE (Negative); URINE NITRITE-REFLEX NEGATIVE (Negative); URINE PROTEIN (DIPSTICK) TRACE (Negative); URINE UROBILINOGEN 0.2 E.U./dl (0.2-1.0)
[2020-04-30 16:18] LABS: URINE CLARITY SL HAZY; URINE LEUKOCYTES-REFLEX 3+ (Negative)
[2020-04-30 16:29] LABS: CASTS None Seen /LPF (None Seen); MUCUS 0-3 Light strn/LPF (None Seen); SQUAMOUS 4-10 Moderate /LPF (0-3)
[2020-04-30 16:30] LABS: BACTERIA-REFLEX >30 Many /HPF (None Seen); CRYSTALS None Seen /LPF (None Seen); URINE RBC 0-2 Rare /HPF (0-2); URINE WBC-REFLEX >25 Many /HPF (0-5)
[2020-04-30 16:31] LABS: WBC CLUMPS Moderate (None Seen)
[2020-04-30 18:13] LABS: ABSOLUTE NEUTROPHILS 9.1 thou/uL (1.4-8.2); BASOPHILS 0.8 % (0.0-2.0); EOSINOPHILS 0.5 % (0.0-3.0); HEMATOCRIT 38.6 % (37.0-47.0); HEMOGLOBIN 12.6 gm/dL (12.0-15.0); MCH 28.9 pg (26.0-34.0); MCHC 32.7 g/dL (28.0-37.0); MCV 88.1 fL (80.0-100.0); PLATELET COUNT 227 thou/uL (150-400); POLYS 68.7 % (36.0-66.0); RBC 4.38 mil/uL (4.20-5.00); RDW 14.8 % (10.5-14.5); WBC 13.3 thou/uL (4.0-11.0)
[2020-04-30 18:21] LABS: CALCIUM 8.3 mg/dL (8.5-10.1); CREATININE 0.8 mg/dL (0.6-1.0); POTASSIUM 3.4 mmol/L (3.5-5.1)
[2020-04-30 18:29] LABS: ALBUMIN 3.4 g/dL (3.4-5.0); TOTAL BILIRUBIN 0.9 mg/dL (0.2-1.0); TOTAL PROTEIN 7.1 g/dL (6.4-8.2)
[2020-04-30] MEDS ORDERED: BACTRIM DS TAB1 EACH PO ×2 (19:02→20:04)
[2020-04-30] MEDS ORDERED: PYRIDIUM200 MG PO ×2 (19:02→20:04)
[2020-04-30] MEDS ORDERED: ONDANSETRON HCL4 M2 PO ×2 (19:05→20:04)
[2020-04-30] MEDS ORDERED: DIFLUCAN150 MG PO (20:03)
[2020-04-30 20:21] VITALS: BP 112/55
== END 2020-04-30 20:22 | disposition home or self-care (01) ==
LOC: ER 15:25
PROVIDERS: Physician Assistant
DX: N39.0 Urinary tract infection, site not specified (principal); Z87.442 Personal history of urinary calculi; Z90.49 Acquired absence of other specified parts of digestive tract; Z79.899 Other long term (current) drug therapy; Z88.6 Allergy status to analgesic agent; Z88.8 Allergy status to other drugs, medicaments and biological substances

== ENCOUNTER 2020-06-09 16:56 | Emergency (ER) | payer OTHER ==
[~2020-06-09] VITALS: Ht 160 cm; Wt 77.1 kg
[~2020-06-09 16:56] MED LIST changes: +BACTRIM DS TAB1 EACH PO; +DIFLUCAN150 MG PO; +ONDANSETRON HCL4 M2 PO; +PYRIDIUM200 MG PO
[2020-06-09 17:19] LABS: URINE BILIRUBIN NEGATIVE (Negative); URINE BLOOD 1+ (Negative); URINE CLARITY CLEAR; URINE COLOR YELLOW; URINE GLUCOSE-RANDOM* NEGATIVE (Negative); URINE KETONES NEGATIVE (Negative); URINE LEUKOCYTES-REFLEX NEGATIVE (Negative); URINE NITRITE-REFLEX NEGATIVE (Negative); URINE PROTEIN (DIPSTICK) NEGATIVE (Negative); URINE SPECIFIC GRAVITY 1.015 (1.005-1.035); URINE UROBILINOGEN 0.2 E.U./dl (0.2-1.0)
[2020-06-09 17:47] LABS: BACTERIA-REFLEX None Seen /HPF (None Seen); CASTS None Seen /LPF (None Seen); CRYSTALS None Seen /LPF (None Seen); SQUAMOUS 0-3 Few /LPF (0-3); URINE RBC 3-10 Few /HPF (0-2); URINE WBC-REFLEX None Seen /HPF (0-5)
[2020-06-09 17:58] LABS: ABSOLUTE NEUTROPHILS 4.1 thou/uL (1.4-8.2); BASOPHILS 0.7 % (0.0-2.0); EOSINOPHILS 0.7 % (0.0-3.0); HEMATOCRIT 42.2 % (37.0-47.0); HEMOGLOBIN 13.9 gm/dL (12.0-15.0); LYMPHOCYTES 34.6 % (24.0-44.0); MCH 28.7 pg (26.0-34.0); MCHC 32.9 g/dL (28.0-37.0); MCV 87.2 fL (80.0-100.0); MONOCYTES 10.4 % (1.0-8.0); PLATELET COUNT 262 thou/uL (150-400); POLYS 53.6 % (36.0-66.0); RBC 4.83 mil/uL (4.20-5.00); RDW 14.2 % (10.5-14.5); WBC 7.6 thou/uL (4.0-11.0)
[2020-06-09 18:06] LABS: CALCIUM 8.7 mg/dL (8.5-10.1); CREATININE 0.9 mg/dL (0.6-1.0); POTASSIUM 3.5 mmol/L (3.5-5.1)
[2020-06-09 18:12] LABS: ALBUMIN 3.7 g/dL (3.4-5.0); DIRECT BILIRUBIN 0.2 mg/dL (<0.1-0.2)
[2020-06-09 22:09] VITALS: BP 105/50
== END 2020-06-09 22:10 | disposition home or self-care (01) ==
LOC: ER 16:56
PROVIDERS: Emergency Medicine; Physician Assistant
DX: R10.9 Unspecified abdominal pain (principal); Z79.899 Other long term (current) drug therapy; Z88.8 Allergy status to other drugs, medicaments and biological substances; Z88.5 Allergy status to narcotic agent

== ENCOUNTER 2021-03-04 18:13 | Emergency (ER) | payer OTHER ==
[~2021-03-04] VITALS: Ht 160 cm; Wt 70.3 kg
[2021-03-04 19:19] LABS: URINE BILIRUBIN NEGATIVE (Negative); URINE BLOOD NEGATIVE (Negative); URINE CLARITY CLEAR; URINE COLOR YELLOW; URINE GLUCOSE-RANDOM* NEGATIVE (Negative); URINE KETONES NEGATIVE (Negative); URINE LEUKOCYTES-REFLEX NEGATIVE (Negative); URINE NITRITE-REFLEX NEGATIVE (Negative); URINE PROTEIN (DIPSTICK) NEGATIVE (Negative); URINE UROBILINOGEN 0.2 E.U./dl (0.2-1.0)
[2021-03-04 19:30] LABS: ABSOLUTE NEUTROPHILS 6.4 thou/uL (1.4-8.2); BASOPHILS 0.8 % (0.0-2.0); EOSINOPHILS 0.6 % (0.0-3.0); HEMATOCRIT 32.4 % (37.0-47.0); HEMOGLOBIN 10.5 gm/dL (12.0-15.0); LYMPHOCYTES 23.7 % (24.0-44.0); MCH 23.8 pg (26.0-34.0); MCHC 32.4 g/dL (28.0-37.0); MCV 73.6 fL (80.0-100.0); MONOCYTES 10.3 % (1.0-8.0); PLATELET COUNT 291 thou/uL (150-400); POLYS 64.6 % (36.0-66.0); RBC 4.41 mil/uL (4.20-5.00); RDW 17.5 % (10.5-14.5); WBC 9.8 thou/uL (4.0-11.0)
[2021-03-04 19:43] LABS: ANION GAP 6 mmol/L (7-16); BUN 10 mg/dL (7-18); CALCIUM 9.3 mg/dL (8.5-10.1); CHLORIDE 105 mmol/L (98-107); CO2 28 mmol/L (21-32); CREATININE 0.8 mg/dL (0.6-1.0); GLUCOSE 82 mg/dL (74-106); POTASSIUM 3.8 mmol/L (3.5-5.1); SODIUM 139 mmol/L (136-145)
[2021-03-04 19:49] LABS: ALBUMIN 3.7 g/dL (3.4-5.0); DIRECT BILIRUBIN < 0.1 mg/dL (<0.1-0.2); MAGNESIUM 1.7 mg/dL (1.8-2.4); SGOT 50 U/L (15-37); SGPT 66 U/L (14-59); TOTAL BILIRUBIN 0.5 mg/dL (0.2-1.0); TOTAL PROTEIN 8.3 g/dL (6.4-8.2)
[2021-03-04 20:50] VITALS: BP 107/62
[2021-03-04 20:59] LABS: ANISOCYTOSIS 1+; HYPOCHROMASIA 1+; MICROCYTES 1+
== END 2021-03-04 20:50 | disposition home or self-care (01) ==
LOC: ER 18:13
PROVIDERS: Emergency Medicine
DX: J06.9 Acute upper respiratory infection, unspecified (principal); Z20.822 Contact with and (suspected) exposure to COVID-19; L93.0 Discoid lupus erythematosus; Z90.49 Acquired absence of other specified parts of digestive tract; Z88.6 Allergy status to analgesic agent; Z88.8 Allergy status to other drugs, medicaments and biological substances

== ENCOUNTER 2021-09-12 09:14 | Inpatient (IN) | payer OTHER ==
[~2021-09-12] VITALS: Ht 160 cm; Wt 69.2 kg
[2021-09-12 09:15] VITALS: BP 118/62
--- NOTE | 2021-09-12 09:37 | NUR ---
PATIENT STATES SHE HAS HAD PAIN OF THE LEFT CHEST RADIATES TO HER LEFT BREAST AND SHOULDER STATES ITS BETTER WHILE STANDING. PATIENT STATES IT IS 10/10 SHARP SHOOTING PAIN. SHE SPOKE WITH HER PRIMARY DR WHO THOUGHT SHE WAS HAVING A LUPUS FLARE
[2021-09-12 09:47] LABS: ABSOLUTE NEUTROPHILS 10.3 thou/uL (1.4-8.2); BASOPHILS 0.6 % (0.0-2.0); EOSINOPHILS 0.2 % (0.0-3.0); HEMATOCRIT 29.9 % (37.0-47.0); HEMOGLOBIN 9.1 gm/dL (12.0-15.0); MCH 22.2 pg (26.0-34.0); MCHC 30.5 g/dL (28.0-37.0); MCV 72.8 fL (80.0-100.0); MONOCYTES 9.9 % (1.0-8.0); PLATELET COUNT 330 thou/uL (150-400); POLYS 75.3 % (36.0-66.0); RBC 4.11 mil/uL (4.20-5.00); RDW 19.2 % (10.5-14.5); WBC 13.7 thou/uL (4.0-11.0)
[2021-09-12 09:54] LABS: ANION GAP 8 mmol/L (7-16); BUN 7 mg/dL (7-18); CALCIUM 8.8 mg/dL (8.5-10.1); CHLORIDE 100 mmol/L (98-107); CO2 26 mmol/L (21-32); CREATININE 0.9 mg/dL (0.6-1.0); GLUCOSE 105 mg/dL (74-106); POTASSIUM 3.9 mmol/L (3.5-5.1); SODIUM 134 mmol/L (136-145)
[2021-09-12 10:04] LABS: ALBUMIN 3.4 g/dL (3.4-5.0); LIPASE 58 U/L (73-393); SGOT 62 U/L (15-37); SGPT 247 U/L (14-59); TOTAL BILIRUBIN 0.9 mg/dL (0.2-1.0); TOTAL PROTEIN 7.9 g/dL (6.4-8.2)
[2021-09-12 11:12] LABS: ANISOCYTOSIS 2+; HYPOCHROMASIA 2+; MICROCYTES 1+
--- NOTE | 2021-09-12 12:48 | EKG ---
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 : 1990 Requested By: Boni Easton Order Number: [id number] MD: Rohit Montilla Measurements Intervals [place] Rate: 107 P: 77 WV: 145 QRS: 79 QRSD: 83 T: 11 QT: 334 QTc: 446 Interpretive Statements Sinus tachycardia Borderline T wave abnormalities Baseline wander in lead(s) II,III,aVF,V4 Compared to ECG 11/29/2019 20:18:50 T-wave abnormality now present Electronically Signed On 09-12-2021 12:47:45 [employer]DR[employer] 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
[2021-09-12 13:24] LABS: URINE BILIRUBIN NEGATIVE (Negative); URINE BLOOD 2+ (Negative); URINE CLARITY CLEAR; URINE COLOR YELLOW; URINE GLUCOSE-RANDOM* NEGATIVE (Negative); URINE KETONES NEGATIVE (Negative); URINE LEUKOCYTES-REFLEX NEGATIVE (Negative); URINE NITRITE-REFLEX NEGATIVE (Negative); URINE PROTEIN (DIPSTICK) NEGATIVE (Negative); URINE UROBILINOGEN 0.2 E.U./dl (0.2-1.0)
[2021-09-12 13:49] LABS: MUCUS 0-3 Light strn/LPF (None Seen)
[2021-09-12 13:50] LABS: BACTERIA-REFLEX None Seen /HPF (None Seen); CASTS None Seen /LPF (None Seen); CRYSTALS None Seen /LPF (None Seen); SQUAMOUS 4-10 Moderate /LPF (0-3); URINE RBC 1-2 Rare /HPF (NONE SEEN); URINE WBC-REFLEX None Seen /HPF (0-5)
[2021-09-12] MEDS ORDERED: MEDROLDOSEPACK PO (13:57)
[2021-09-12] MEDS ORDERED: ZOFRAN ODT4 MG PO (13:57)
[2021-09-12] MEDS ORDERED: VALIUM10 MG PO (13:57)
[2021-09-12 19:29] VITALS: BP 118/66
[2021-09-12 20:05] VITALS: BP 113/67
[2021-09-12 20:55] VITALS: BP 119/54
[2021-09-13 01:46] VITALS: BP 122/62
--- NOTE | 2021-09-13 04:14 | NUR ---
PT ARRIVED ON UNIT FROM ER AT 2030. ADMITTED FROM HOME WITH NON CARDIAC CHEST PAIN-PERICARDIAL [id number] EXACERBATION. AMBULATING TO BATHROOM INDEPENDENTLY. FIORICET AND MORPHINE PROVIDING PAIN RELIEF. ZOFRAN NAUSEA RELIEF. RESTING COMFORTABLY. NO NEEDS VOICED. CALL LIGHT WITHIN REACH. FREQUENT OBSERVATION.
[2021-09-13 05:31] VITALS: BP 109/65
[2021-09-13 08:00] VITALS: BP 108/60
[2021-09-13 12:00] VITALS: BP 87/46
[2021-09-13 15:30] VITALS: BP 122/60
[2021-09-13 19:20] VITALS: BP 104/68
--- NOTE | 2021-09-13 19:34 | NUR ---
Pt was A&0x4, VS stable, and pt remained afebrile throughout shift. Pts chief complaint is pain: oxycodone was ordered Q4; pt continued to request IV pain medication. Pain medication indication and regimen was explained to pt. Pt reported apperance of butterfly rash on face - symptomatic of lupus flare up. Pt is scheduled for Echo on 09/14/21. No shelley
[2021-09-14 04:48] VITALS: BP 93/45
--- NOTE | 2021-09-14 05:17 | NUR ---
Assumed pt care at 1900. Pt is alert and oriented. No sign of distress noted in pt. Pt verbalizes pain. Pain med administered to pt. Assessmet completed and documented. Scheduled meds administered to pt. No acute events through night. No further needs at this time.
[2021-09-14 07:00] VITALS: BP 109/55
[2021-09-14] MEDS ORDERED: ROXICODONE5 M2 PO (12:49)
--- NOTE | 2021-09-14 13:39 | 2DMMODE ---
[address] [address] 2 D/M-MODE ECHOCARDIOGRAM Name: CHRISTOPH GRIFFITHS Room #: 200-I ADM IN M.R.#: [id number] Admission: 09/12/21 Attend Phys: Rosales Lawson MD Discharge: Date of : [birth year] Report #: [id number] THIS REPORT FOR: cc: MOHINI - No family physician/PCP FAM - No family physician/PCP Sathish Celaya MD [facility] ~ APPROVED REPORT Study performed: 09/14/2021 11:14:32 EXAM: Comprehensive 2D, Doppler, and color-flow Echocardiogram Patient Location: Bedside Room #: 200 Status: routine BSA: 1.70 HR: 87 bpm BP: 109/55 mmHg Rhythm: NSR Other Information Study Quality: Good Indications Chest Pain 2D Dimensions IVC: 16.00 mm Volumes Left Atrial Volume (Systole) LA ESV Index: 28.00 mL/m2 Tricuspid Valve PA Pressure: 30.00 mmHg Left Ventricle The left ventricle is normal size. There is normal LV segmental wall motion. There is normal left ventricular wall thickness. Left ventricular systolic function is normal. The left ventricular ejection fraction is within the normal range. LVEF is 60-65%. The left ventricular diastolic function is normal. Right Ventricle The right ventricle is normal size. The right ventricular systolic [address] [address] 2 D/M-MODE ECHOCARDIOGRAM Name: CHRISTOPH GRIFFITHS Room #: 200-I ADM IN M.R.#: [id number] Admission: 09/12/21 Attend Phys: Javon Horn Discharge: Date of : 89 Report #: [id number] function is normal. Atria The left atrium size is normal. The right atrium size is normal. Aortic Valve The aortic valve is normal in structure. Moderate aortic regurgitation. There is no aortic valvular stenosis. Mitral Valve The mitral valve is normal in structure. Trace mitral regurgitation. No evidence of mitral valve stenosis. Tricuspid Valve The tricuspid valve is normal in structure. There is mild tricuspid regurgitation. Estimated PAP 30 mmHg. There is no pulmonary hypertension. Pulmonic Valve The pulmonary valve is normal in structure. There is no pulmonic valvular regurgitation. Great Vessels The aortic root is normal in size. IVC is normal in size and collapses >50% with inspiration. Pericardium There is no pericardial effusion. <Conclusion> Normal left ventricle size/wall thickness Ejection fraction 60% Normal right ventricle size/function Normal atrial size Normal aortic valve structure Moderate aortic valve insufficiency Normal mitral valve structure and function Mild tricuspid valve insufficiency Pulmonary systolic pressure estimated 30 mmHg No pericardial effusion Normal aortic root size. <ELECTRONICALLY SIGNED> By: Sathish Cealya MD, [facility] 09/14/21 1338 [id number] 1338 Sathish Celaya MD, FACC /INF
[2021-09-14 14:40] LABS: CALCIUM 8.6 mg/dL (8.5-10.1); CREATININE 0.8 mg/dL (0.6-1.0); POTASSIUM 3.5 mmol/L (3.5-5.1); TOTAL BILIRUBIN 0.3 mg/dL (0.2-1.0); TOTAL PROTEIN 7.2 g/dL (6.4-8.2)
[2021-09-14 16:00] VITALS: BP 111/70
[2021-09-14] MEDS ORDERED: PREDNISONE 20 M20 M1 PO (16:24)
--- NOTE | 2021-09-14 16:53 | NUR ---
Pt was A&0x4, VS stable and afebrile throughout shift. Main goal was to control pain; pt stated feeling partial relief from pain on current pain medication regimen. Echocardiogram was completed and hammer operator came to see pt. Pt was cleared for discharge. Will continue to monitor and proceed with discharge orders. No current concerns.
[2021-09-14 17:38] VITALS: BP 111/70
[2021-09-14] MEDS ORDERED: ZOFRAN ODT4 MG PO (19:04)
== END 2021-09-14 19:05 | disposition home or self-care (01) | DRG 316 ==
LOC: ER 09:14 → EROBS 15:13 → 2N 20:07
PROVIDERS: Emergency Medicine; ADMIT Hospitalist; ATTEND Hospitalist
DX: I30.9 Acute pericarditis, unspecified (principal); R07.81 Pleurodynia; K59.00 Constipation, unspecified; R74.01 Elevation of levels of liver transaminase levels; D25.9 Leiomyoma of uterus, unspecified; R07.89 Other chest pain; D64.9 Anemia, unspecified; D72.829 Elevated white blood cell count, unspecified; M32.9 Systemic lupus erythematosus, unspecified; Z20.822 Contact with and (suspected) exposure to COVID-19; Z90.49 Acquired absence of other specified parts of digestive tract; Z79.899 Other long term (current) drug therapy; Z88.6 Allergy status to analgesic agent; Z88.5 Allergy status to narcotic agent; Z88.8 Allergy status to other drugs, medicaments and biological substances; Z83.3 Family history of diabetes mellitus; Z82.49 Family history of ischemic heart disease and other diseases of the circulatory system; Z79.52 Long term (current) use of systemic steroids
CPT/HCPCS: 10081